=== PATIENT | female | born 1985 | race Caucasian/White ===

== ENCOUNTER 2018-03-21 21:45 | Inpatient (IN) | payer BC, MEDICAID ==
[~2018-03-21] VITALS: Ht 160 cm; Wt 123.1 kg
[2018-03-21] MEDS ORDERED: PIPERACILLIN/TAZ 3.375G PREMIX 50 ML IV NR (23:39)
[2018-03-21] MEDS: VANCOMYCIN 1 G PREMIX 200 ML IV SCH (23:45)
[2018-03-21] MEDS ORDERED: PIPERACILLIN/TAZOBACTAM 3.375GM/50ML PREMIX IV ONE (23:45)
[2018-03-22] MEDS ORDERED: ACETAMINOPHEN 325MG TABLET PO PRN ×2 (00:45→01:30)
[2018-03-22 01:04] LABS: BASOPHILS % 0.4 % (0.0-2.0); EOSINOPHILS % 1.1 % (0.0-5.0); HEMATOCRIT. 41.1 % (36.0-48.0); HEMOGLOBIN. 13.5 g/dL (12.0-16.0); LYMPHOCYTES % 20.9 % (20.0-50.0); MEAN CORPUSCULAR HEMOGLOBIN 26.9 pg (28.0-32.0); MEAN PLATELET VOLUME 10.3 fl (7.4-10.4); MONOCYTES % 6.6 % (2.0-8.0); PLATELET 223 x1000/uL (130-400); RED BLOOD CELL COUNT 5.02 mill/uL (4.2-5.4); RED CELL DISTRIBUTION WIDTH 14.9 % (11.6-14.6)
[2018-03-22 01:10] LABS: CHLORIDE 105 mEq/L (98-107)
[2018-03-22] MEDS ORDERED: ONDANSETRON HCL 4MG/2ML INJ IV PRN (01:30)
[2018-03-22] MEDS ORDERED: VANCOMYCIN 1 G PREMIX 200 ML IV SCH (01:30)
[2018-03-22] MEDS: VANCOMYCIN 1 G PREMIX 200 ML IV SCH ×3 (02:09→23:14)
[2018-03-22 04:00] VITALS: BP 131/87
[2018-03-22 04:23] VITALS: BP 119/68
[2018-03-22] MEDS: SODIUM CHLORIDE 0.9% INJ 3ML FLUSH IVF SCH ×3 (06:00→23:14)
[2018-03-22 08:00] VITALS: BP 105/65
[2018-03-22] MEDS ORDERED: PIPERACILLIN/TAZ 3.375G PREMIX 50 ML IV SCH (09:00)
[2018-03-22 12:00] VITALS: BP 95/55
[2018-03-22] MEDS ORDERED: PNEUMOCOCCAL 23-VAL P-SAC VAC 0.5 ML IM ONE (12:00)
[2018-03-22] MEDS ORDERED: INFLUENZA VIRUS VACCINE(AFLURIA) 0.5ML SYR IM ONE (12:00)
[2018-03-22 15:26] LABS: PROTHROMBIN TIME 10.4 sec (9.1-11.1)
[2018-03-22 16:00] VITALS: BP 123/70
[2018-03-22 20:00] VITALS: BP 106/64
[2018-03-22] MEDS: PIPERACILLIN/TAZ 3.375G PREMIX 50 ML IV SCH (20:12)
[2018-03-23] VITALS: BP 95/57
[2018-03-23] MEDS: PIPERACILLIN/TAZ 3.375G PREMIX 50 ML IV SCH ×3 (02:07→13:43)
[2018-03-23 04:00] VITALS: BP 95/52
[2018-03-23] MEDS: SODIUM CHLORIDE 0.9% INJ 3ML FLUSH IVF SCH ×2 (06:06→13:49)
[2018-03-23] MEDS: VANCOMYCIN 1 G PREMIX 200 ML IV SCH (06:06)
[2018-03-23 07:14] LABS: BASOPHILS % 0.5 % (0.0-2.0); EOSINOPHILS % 2.1 % (0.0-5.0); HEMATOCRIT. 35.8 % (36.0-48.0); HEMOGLOBIN. 11.9 g/dL (12.0-16.0); LYMPHOCYTES % 24.7 % (20.0-50.0); MEAN CORPUSCULAR HEMOGLOBIN 26.9 pg (28.0-32.0); MONOCYTES % 6.4 % (2.0-8.0); NEUTROPHILS % 66.3 % (40.0-76.0); PLATELET 231 x1000/uL (130-400); RED BLOOD CELL COUNT 4.42 mill/uL (4.2-5.4); RED CELL DISTRIBUTION WIDTH 14.3 % (11.6-14.6)
[2018-03-23 08:00] VITALS: BP 123/74
[2018-03-23] MEDS ORDERED: VANCOMYCIN 1500MG in DEXTROSE 5% WATER 250ML IV SCH (15:00)
[2018-03-23 15:20] VITALS: BP 123/74
[2018-03-23 16:00] VITALS: BP 113/69
== END 2018-03-23 17:25 | disposition home or self-care (01) | DRG 603 ==
LOC: ER 21:45 → 6EST 03-22 00:34 → EDBEDREQTM 03-22 00:38 → EDBEDREQSVC 03-22 00:38 → EDBEDREQ 03-22 00:38 → EDBEDREQDT 03-22 00:38 → EDBEDREQSVC 03-22 01:19 → ENRESERV 03-22 01:48 → EDBEDREQ 03-22 03:02
PROVIDERS: ADMIT Internal Medicine; ATTEND Internal Medicine
DX: L03.311 Cellulitis of abdominal wall (principal); Z68.42 Body mass index [BMI] 45.0-49.9, adult; R65.10 Systemic inflammatory response syndrome (SIRS) of non-infectious origin without acute organ dysfunction; L02.211 Cutaneous abscess of abdominal wall; E66.9 Obesity, unspecified; Z88.2 Allergy status to sulfonamides; Z88.8 Allergy status to other drugs, medicaments and biological substances; Z98.891 History of uterine scar from previous surgery
CPT/HCPCS: 36415; 76857; 80202; 90686; 90732; 96365; 99285; C1893; J2543; J3370; J7060

== ENCOUNTER 2018-03-31 04:35 | Emergency (ER) | payer BC, MEDICAID ==
[~2018-03-31] VITALS: Ht 162.6 cm; Wt 122.0 kg
[2018-03-31] MEDS ORDERED: METHYLPREDNISOLONE SOD SUCC 125 MG/2 ML VIAL IM ONE (06:45)
[2018-03-31] MEDS ORDERED: DIPHENHYDRAMINE 25MG CAPSULE PO ONE (06:45)
[2018-03-31 08:52] VITALS: BP 136/62
== END 2018-03-31 08:55 | disposition home or self-care (01) ==
LOC: ER 04:35
DX: L50.9 Urticaria, unspecified (principal); T78.40XA Allergy, unspecified, initial encounter; X58.XXXA Exposure to other specified factors, initial encounter; Z88.2 Allergy status to sulfonamides; Z88.8 Allergy status to other drugs, medicaments and biological substances
CPT/HCPCS: 96372; 99283; J2930; Q0163